=== PATIENT | female | born 1960 | race Caucasian/White ===

== ENCOUNTER 2017-01-17 13:58 | Emergency (ER) | payer BC ==
[2017-01-17] MEDS ORDERED: ATARAX (14:04)
[2017-01-17] MEDS ORDERED: CELEXA 20MG20 MG/TA1 PO (14:04)
[2017-01-17 17:49] VITALS: BP 147/99
== END 2017-01-17 17:45 | disposition home or self-care (01) ==
LOC: ED 13:58
DX: S06.0X9A Concussion with loss of consciousness of unspecified duration, initial encounter (principal); S00.83XA Contusion of other part of head, initial encounter; S10.83XA Contusion of other specified part of neck, initial encounter; W10.8XXA Fall (on) (from) other stairs and steps, initial encounter; Y92.008 Other place in unspecified non-institutional (private) residence as the place of occurrence of the external cause; R41.3 Other amnesia; R63.4 Abnormal weight loss; F32.9 Major depressive disorder, single episode, unspecified
CPT/HCPCS: J1885; J3010

== ENCOUNTER 2018-04-20 21:08 | Emergency (ER) | payer OTHER ==
[~2018-04-20] VITALS: Ht 142.2 cm; Wt 52.3 kg
[~2018-04-20 21:08] MED LIST: ATARAX; ATARAX 10MG10 MG/TAB PO; CELEXA 20MG20 MG/TA1 PO; PAXIL CR25 M1; ZOFRAN ODT4 MG PO
[2018-04-20 22:30] LABS: BASO # 0.1 (0.02-0.10); EOS % 0.7 % (1.0-5.0); HEMOGLOBIN 14.7 g/dL (12.5-16.0); LYMPH# 0.9 (1.50-4.00); MEAN CELL VOLUME 89 fl (78-100); MEAN CORPUSCULAR HEMOGLOBIN 29 pg (27-31); MEAN CORPUSCULAR HGB CONC 33 g/dL (33-37); MEAN PLATELET VOLUME 10.6 fl (7.4-10.4); MONO # 0.6 (0.20-0.80); NEU # 4.4 (1.40-6.50); RED BLOOD COUNT 5.08 M/mm3 (4.10-5.30); RED CELL DISTRIBUTION WIDTH 14.9 % (11.5-14.5)
[2018-04-20 22:32] LABS: PLATELET COUNT 507 K/mm3 (130-400)
[2018-04-20 22:41] LABS: ALBUMIN 4.4 g/dL (3.5-5.0); BUN/CREATININE RATIO 14.1 (6.0-26.0); CALCIUM 9.4 mg/dL (8.4-10.2); POTASSIUM 3.6 mmol/L (3.6-5.0); TOTAL BILIRUBIN 1.9 mg/dL (0.2-1.3); TOTAL PROTEIN 7.7 g/dL (6.3-8.2)
[2018-04-20 23:04] LABS: URINE APPEARANCE CLEAR; URINE COLOR YELLOW
[2018-04-20 23:05] LABS: URINE BILIRUBIN NEGATIVE (NEGATIVE); URINE BLOOD NEGATIVE (NEGATIVE); URINE GLUCOSE NEGATIVE (NEGATIVE); URINE KETONE 2+ (NEGATIVE); URINE LEUKOCYTE ESTERASE TRACE (NEGATIVE); URINE MUCUS PRESENT (NOT PRESENT); URINE NITRATE NEGATIVE (NEGATIVE); URINE PROTEIN(semi-quant) NEGATIVE (NEGATIVE); URINE UROBILINOGEN NORMAL (NORMAL)
[2018-04-21 02:12] VITALS: BP 155/81
== END 2018-04-21 02:12 | disposition home or self-care (01) ==
LOC: ED 21:08
PROVIDERS: Family Medicine
DX: R11.12 Projectile vomiting (principal); R41.3 Other amnesia
CPT/HCPCS: J7030

== ENCOUNTER → 2018-07-02 | Outpatient (CLI) | payer OTHER ==
[~2018-07-02] VITALS: Ht 142.2 cm; Wt 52.3 kg
[~2018-07-02] MED LIST changes: +ASPIRIN 81M81 MG/TA2 PO
[2018-07-02 15:28] VITALS: BP 134/90
[2018-07-02 16:16] LABS: HEMATOCRIT 51.7 % (37.0-47.0); HEMOGLOBIN 17.4 g/dL (12.5-16.0); MEAN CELL VOLUME 87 fl (78-100); MEAN CORPUSCULAR HEMOGLOBIN 29 pg (27-31); MEAN CORPUSCULAR HGB CONC 34 g/dL (33-37); MEAN PLATELET VOLUME 10.5 fl (7.4-10.4); RED BLOOD COUNT 5.98 M/mm3 (4.10-5.30); WHITE BLOOD COUNT 7.7 K/mm3 (4.8-10.8)
[2018-07-02 16:29] LABS: PLATELET COUNT 638 K/mm3 (130-400)
[2018-07-02 16:40] LABS: ALBUMIN 5.2 g/dL (3.5-5.0); POTASSIUM 4.7 mmol/L (3.6-5.0); TOTAL BILIRUBIN 1.7 mg/dL (0.2-1.3); TOTAL PROTEIN 8.4 g/dL (6.3-8.2)
[2018-07-02 16:44] LABS: LYMPHOCYTE 14 % (20-51); MONOCYTE 9 % (3-10); NEUTROPHILS 76 % (42-75)
[2018-07-02 16:46] LABS: URINE COLOR YELLOW
[2018-07-02 17:11] LABS: URINE APPEARANCE HAZY
[2018-07-02 17:12] LABS: URINE BILIRUBIN NEGATIVE (NEGATIVE); URINE BLOOD NEGATIVE (NEGATIVE); URINE GLUCOSE NEGATIVE (NEGATIVE); URINE KETONE 3+ (NEGATIVE); URINE LEUKOCYTE ESTERASE NEGATIVE (NEGATIVE); URINE NITRATE NEGATIVE (NEGATIVE); URINE PROTEIN(semi-quant) TRACE mg/dL (NEGATIVE); URINE UROBILINOGEN NORMAL (NORMAL)
[2018-07-02 17:17] LABS: URINE MUCUS PRESENT (NOT PRESENT)
[2018-07-02 17:45] VITALS: BP 137/95
== END ==
LOC: AMSURD 14:47
PROVIDERS: Physician Assistant
DX: R11.2 Nausea with vomiting, unspecified (principal); E86.0 Dehydration
CPT/HCPCS: J2405; J7030